=== PATIENT | male | born 1980 | race Two or more races ===

== ENCOUNTER 2024-09-15 19:26 | Emergency (ER) | payer BC, OTHER ==
[~2024-09-15] VITALS: Ht 167.6 cm; Wt 103.0 kg
[2024-09-15] MEDS: TETANUS-DIPTH-ACEL PERTUSSIS 0.5ML SYR Tdap IM ONE (19:45)
[2024-09-15] MEDS ORDERED: BACIOIN15 TOP (20:18)
[2024-09-15] MEDS ORDERED: IBUP-1455 PO (20:18)
--- NOTE | 2024-09-15 20:19 | ED.PDOC ---
Foreign Body HPI Comments This patient is a pleasant but morbidly obese 44-year-old male who arrives the ED today for evaluation of left thigh wound sustained approximately 2 hours prior to arrival. Patient was cutting palm fronds off of a tree in the backyard when one fell and one of the palms spikes stabbed him in the thigh. Patient attempted to remove it, but the top broke off and a fragment remained. Patient's tetanus is not up-to-date. Patient denies any fever nausea or vomiting. Scant blood loss. Chief Complaint: Foreign Body Time Seen by MD: 19:38 History of Present Illness: Nurses Notes Allergies: Coded Allergies: No Known Drug Allergy (Verified Allergy, Unknown, 09/15/24) Home Meds Active Scripts Ibuprofen Micronized (Ibuprofen) 800 Mg Tab, 800 MG PO Q8HP PRN, #10 TAB Prov:LUKAS VALADEZ PAC 09/15/24 Bacitracin Base (Bacitracin) 500 Unit/Gm Oin, 500 UNIT TOP BID for 5 Days, #30 GM Prov:LUKAS VALADEZ PAC 09/15/24 Information Source: Patient Mode of Arrival: Ambulatory Timing: Hours Duration: Since onset Severity: Mild Prehospital treatment: None Location: Left (Thigh) Context: Injury Foreign Body: Other (Needle from palm frond) Associated signs and symptoms: Pain Past Medical History PAST MEDICAL HISTORY: Denies Surgical History: Denies all surgeries Family History Family History: Reviewed,noncontributory to illness, No family hx of Cancer, No family hx of DM, No family hx of Heart elissa, No family hx of HTN, No family hx ofKidney elissa, No family hx of Liver elissa, No family hx of Lung elissa, No family hx of Stroke Social History Smoker: Non-Smoker Alcohol: Denies ETOH Use Drugs: Denies Drug Use Lives In: Home Constitutional: denies: chills, diaphoresis, fatigue, fever, malaise, sweats, weakness, others EENTM: denies: blurred vision, double vision, ear bleeding, ear discharge, ear drainage, ear pain, ear ringing, eye pain, eye redness, hearing loss, mouth pain, mouth swelling, nasal discharge, nose bleeding, nose congestion, nose pain, photophobia, tearing, throat pain, throat swelling, voice changes, others Respiratory: denies: cough, hemoptysis, orthopnea, SOB at rest, shortness of breath, SOB with excertion, stridor, wheezing, others Cardiovascular: denies: chest pain, dizzy spells, diaphoresis, Dyspnea on exertion, edema, irregular heart beat, left arm pain, lightheadedness, palpitations, PND, syncope, others Gastrointestinal: denies: abdomen distended, abdominal pain, blood streaked bowels, constipated, diarrhea, dysphagia, difficulty swallowing, hematemesis, melena, nausea, poor appetite, poor fluid intake, rectal bleeding, rectal pain, vomiting, others Genitourinary: denies: burning, dysuria, flank pain, frequency, hematuria, incontinence, penile discharge, penile sore, pain, testicle pain, testicle swelling, urgency, others Neurological: denies: dizziness, fainting, headache, left sided numbness, left sided weakness, numbness, paresthesia, pre-existing deficit, right sided numbness, right sided weakness, seizure, speech problems, tingling, tremors, weakness, others Musculoskeletal: denies: back pain, gout, joint pain, joint swelling, muscle pain, muscle stiffness, neck pain, others Integumetry: reports: wounds (Foreign body in left thigh); denies: bruises, change in color, change in hair/nails, dryness, laceration, lesions, lumps, rash, others Allergic/Immunocompromised: denies: Difficulty Healing, Frequent Infections, Hives, Itching, others Hematologic/Lymphatic: denies: anemia, blood clots, easy bleeding, easy bruising, swollen glands, others Endocrine: denies: excessive hunger, excessive sweating, excessive thirst, excessive urination, flushing, intolerance to cold, intolerance to heat, unexplained weight gain, unexplained weight loss, others Psychiatric: denies: anxiety, bipolar disorder, depression, hopeless, panic disorder, schizophrenia, sleepless, suicidal, others Physical Exam General Appearance: Mild Distress (Due to left thigh foreign body), Normal HEENT: Normal ENT Inspection, Pharynx Normal, TMs Normal Neck: Full Range of Motion, Non-Tender, Normal, Normal Inspection Respiratory: Chest Non-Tender, Lungs Clear, No Accessory Muscle Use, No Respiratory Distress, Normal Breath Sounds Cardiovascular: No Edema, No JVD, No Murmur, No Gallop, Normal Peripheral Pulses, Regular Rate/Rhythm Breast Exam: Deferred Gastrointestinal: No Organomegaly, Non Tender, No Pulsatile Mass, Normal Bowel Sounds, Soft Genitalia: Deferred Pelvic: Deferred Rectal: Deferred Extremities: No calf tenderness, Normal capillary refill, Normal inspection, Normal range of motion, Non-tender, No pedal edema Neurologic: Alert, No Motor Deficits, Normal Affect, Normal Mood, No Sensory Deficits Cerebellar Function: Normal Reflexes: Normal Skin: Other (Patient has an embedded palm frond jayme in the lateral aspect of his left lower thigh. Scant blood loss.) Lymphatic: No Adenopathy Was a procedure done? Was a procedure done?: Yes Sedation Sedation?: No Other Procedure Notes 3 cc of 1% lidocaine was utilized for local anesthesia. Palm frond jayme was removed. Minimal blood loss. Patient tolerated procedure well. Clean dressing applied. FB Differential Dx Differential Diagnosis: Other (Puncture wound, foreign body) X-Ray, Labs, Meds, VS Vital Signs Date Time Temp Pulse Resp B/P (MAP) Pulse Ox O2 Delivery O2 Flow Rate FiO2 09/15/24 20:54 98.4 81 16 140/76 (97) 97 98.4 09/15/24 19:35 98.7 86 16 144/89 (107) 96 98.7 X-Ray, Labs, Meds, VS Comment Patient tolerated procedure well. Advised patient utilize topical antibiotics and keep the wound clean for the next few days. Time of 1ST Reevaluation: 20:17 Reevaluation 1ST: Improved Consultation: PCP Patient Education/Counseling: Diagnosis, Treatment Family Education/Counseling: Diagnosis, Treatment Departure 1 Departure Time of Disposition: 20:17 Impression: Primary Impression: Foreign body (FB) in soft tissue Disposition: HOME / SELF CARE / HOMELESS Condition: Stable Additional Instructions: Advised patient utilize topical antibiotics and keep wound clean for the next few days. e-Prescriptions Ibuprofen Micronized (Ibuprofen) 800 Mg Tab 800 MG PO Q8HP PRN, #10 TAB Prov: LUKAS VALADEZ PAC 09/15/24 Bacitracin Base (Bacitracin) 500 Unit/Gm Oin 500 UNIT TOP BID for 5 Days, #30 GM Prov: LUKAS VALADEZ PAC 09/15/24 Discharged With: Self, Friend Critical Care Note Critical Care Time?: No Stability Stability form required: No Heart Score Heart Score: Heart Score Response (Comments) Value History N/A 0 EKG N/A 0 Age N/A 0 Risk Factors N/A 0 Troponin N/A 0 Total 0 LUKAS VALADEZ PAC Sep 15, 2024 20:19
[2024-09-15 20:54] VITALS: BP 140/76; PULSE 81; RESP 16; TEMP 98.4; O2SAT 97
== END 2024-09-15 20:55 | disposition home or self-care (01) ==
LOC: ER 19:26
DX: S70.352A Superficial foreign body, left thigh, initial encounter (principal); W19.XXXA Unspecified fall, initial encounter; Y93.89 Activity, other specified; Y92.89 Other specified places as the place of occurrence of the external cause; Y99.8 Other external cause status
CPT/HCPCS: 90471; 90715